=== PATIENT | male | born 1965 ===

== ENCOUNTER 2021-08-05 08:00 | Outpatient (CLI) | payer OTHER | END 2021-08-05 23:59 | disposition home or self-care (01) | LOC: LAB.R 08:00 | PROVIDERS: ATTEND Internal Medicine | DX: E03.9 Hypothyroidism, unspecified (principal); K57.92 Diverticulitis of intestine, part unspecified, without perforation or abscess without bleeding; J30.2 Other seasonal allergic rhinitis; Z86.711 Personal history of pulmonary embolism | CPT/HCPCS: 84443 ==

== ENCOUNTER 2022-02-27 08:00 | Outpatient (CLI) | payer OTHER ==
[2022-02-27 16:29] LABS: THYROID STIMULATING HORMONE 8.28 uIU/mL (0.34-5.60)
[2022-02-27 17:02] LABS: FREE T4 (FREE THYROXINE) 0.72 ng/dL (0.58-1.64)
== END 2022-02-27 23:59 | disposition home or self-care (01) ==
LOC: LAB.R 08:00
PROVIDERS: ATTEND Internal Medicine
DX: E03.9 Hypothyroidism, unspecified (principal); R23.2 Flushing; R25.2 Cramp and spasm
CPT/HCPCS: 84439; 84443